=== PATIENT | female | born 1985 | race Native Hawaiian/Other Pacific Islander ===

== ENCOUNTER 2017-06-24 14:58 | Emergency (ER) | payer OTHER ==
[2017-06-24 15:53] VITALS: BMI 23.0
[2017-06-24] MEDS ORDERED: Betamethasone Soluspan 30 mg/5mL Inj Susp IM ONE (16:21)
[2017-06-24 22:17] VITALS: BP 109/76; PULSE 99; RESP 16; TEMP 97.8; O2SAT 96
== END 2017-06-24 17:43 | disposition home or self-care (01) ==
LOC: H.EROB2 14:58 → H.EROB 15:42 → H.EROB2 17:43
DX: O36.5931 Maternal care for other known or suspected poor fetal growth, third trimester, fetus 1 (principal); O26.93 Pregnancy related conditions, unspecified, third trimester; Z23 Encounter for immunization; Z3A.33 33 weeks gestation of pregnancy
CPT/HCPCS: 96372; 99281; J0702

== ENCOUNTER 2017-06-25 16:36 | Emergency (ER) | payer OTHER ==
[2017-06-25 16:37] VITALS: BMI 23.0
[2017-06-25] MEDS ORDERED: Betamethasone Soluspan 30 mg/5mL Inj Susp IM ONE ×2 (17:23→17:45)
--- NOTE | 2017-06-25 18:27 | OBHP ---
Datetime: 06/25/2017 17:56 IP Adm Impression: , intrauterine IP Admit Plan: Observation/Evaluation Admit Comment, IP Provider: 32 yo G1 at 33+1 wks w/ EDC 08/12/2016 by 10+ wk u/s who presents for se cond steroid dose of betamethasone for intrauterine growth restriction. Pt reports a recent cough, s aw appraisal specialist this week and was rx'd an inhalor. Pt's states that her cough is btter but not cured and that she will f/u w/ appraisal specialist. Pt has an appointment scheduled for MFM consult w/ Dr. Simms. Pt denies ctxns, VB, LOF and reports FM. Pt is a vegetarian. 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 Simms nest week for MFM consultation A/P: Abdomen - PN: Normal Lungs - PN: Abnormal Heart - PN: Normal Neurologic - PN: Normal General - PN: Normal FHR - Baseline A Provider: 130s Comments, ACOG Physical Exam: Lungs: pt started to cough w/ deep breaths and wheezing heard at the b ases EGA AdmitDate IP: 33.1 Vital Signs Provider: Reviewed IP Chief Complaint: Other NICHD Variability Prov Fetus A: Moderate 6-25bpm NICHD Accel Fetus A IP Provider: [id number] NICHD Decel Fetus A IP Provider: None
--- NOTE | 2017-06-25 18:29 | OBDCSUM ---
Datetime: 06/25/2017 17:53 Discharged to, Provider: Home Follow up at, Provider: Dr Sosa Disch Instr Activity: Normal activity Disch Instr Diet: Regular Discharge Instructions, Provider: Routine instructions given Discharge Time: 06/25/2017 18:10 Follow up in weeks, Provider: Next scheduled appointment Disch Referrals: None Contraception discussed, Prov: No Discharge Diagnosis Prov Other: Intrauterine growth restriction
[2017-06-28 13:49] VITALS: BP 124/78; PULSE 109
== END 2017-06-25 18:10 | disposition home or self-care (01) ==
LOC: H.EROB2 16:36
DX: O36.5930 Maternal care for other known or suspected poor fetal growth, third trimester, not applicable or unspecified (principal); Z3A.33 33 weeks gestation of pregnancy; O26.93 Pregnancy related conditions, unspecified, third trimester; R05 Cough; Z23 Encounter for immunization
CPT/HCPCS: 96372; 99281; J0702

== ENCOUNTER 2017-08-05 12:36 | Inpatient (IN) | payer OTHER ==
[2017-08-05 13:24] VITALS: BMI 23.8
[2017-08-05 15:31] LABS: BASO # 0.1 K/uL (0.0-0.2); BASO % 0.6 % (0.0-2.0); EOS # 0.1 K/uL (0.0-0.7); EOS % 0.9 % (0.0-4.0); HEMOGLOBIN 10.3 g/dL (12.0-16.0); LYMPH # 2.2 K/uL (1.0-4.3); LYMPH % 20.6 % (20.0-40.0); MEAN CORPUSCULAR HEMOGLOBIN 20.4 pg (27.0-31.0); MEAN CORPUSCULAR HGB CONC 30.9 g/dL (33.0-37.0); MEAN PLATELET VOLUME 9.6 fl (7.2-11.7); MONO # 0.6 K/uL (0.0-0.8); MONO % 5.5 % (0.0-10.0); NEUT # 7.9 K/uL (1.8-7.0); NEUT % 72.4 % (50.0-75.0); NRBC % 0.2 % (0.0-0.0); RBC 5.05 Mil/uL (3.80-5.20); RED CELL DISTRIBUTION WIDTH 15.1 % (11.5-14.5); WHITE BLOOD COUNT 10.9 K/uL (4.8-10.8)
--- NOTE | 2017-08-05 22:27 | OBADHP ---
Datetime: 08/05/2017 22:21 Admit Comment, IP Provider: 42-year-old at 39 weeks gestational age transferred to [facility] for induction of labor due to intrauterine growth restriction. Patient denies any current pro blems at this time. Patient denies any contractions, vaginal bleeding, leakage of fluids. Patient rep orts good movement. records reviewed. Past medical history malaria in 1999, iron deficiency anemia, asthma Past surgical history denies Medications vitamins, iron supplementation, albuterol when necessary Drug allergies Obstetrical history Social history no tobacco, drugs, no alcohol Assessment: 32-year-old at 39 weeks gestational age with IUGR for induction of labor. Maternal and well-being reassuring at this time. Plan: I discussed plan with patient and all patient questions answered. Cervidil placed vaginally as per her PMD request Pelvic Type - PN: Adequate Extremities - PN: Normal Abdomen - PN: Normal Back - PN: Normal Breast - PN: Normal Lungs - PN: Normal Heart - PN: Normal Thyroid - PN: Normal Neurologic - PN: Normal HEENT - PN: Normal General - PN: Normal FHR - Baseline A Provider: 120s-130s Membranes, Provider: Intact Contraction Comments Provider: occasional Vital Signs Provider: Reviewed; Within Normal Limits IP Chief Complaint: Other NICHD Variability Prov Fetus A: Moderate 6-25bpm NICHD Accel Fetus A IP Provider: [id number] FHR Category Provider Fetus A: Category I NICHD Decel Fetus A IP Provider: None Dilatation, Provider: 0 Effacement, Provider: 0 Station, Provider: -4 Genitourinary Exam: Normal DTRs - PN: Normal EGA AdmitDate IP: 37.4 IP Adm Impression: Term, intrauterine ; No Active Labor; Intact Membranes IP Admit Plan: Admit to unit; Initiate labor induction protocol Datetime: 06/25/2017 17:56 Comments, ACOG Physical Exam: Lungs: pt started to cough w/ deep breaths and wheezing heard at the b ases
[2017-08-06] MEDS ORDERED: Lactated Ringer's 1,000 ML IV SCH (07:30)
[2017-08-06] MEDS: Lactated Ringer's 1,000 ML IV SCH ×2 (07:30→07:55)
[2017-08-06] MEDS ORDERED: Fentanyl/Bupivacaine HCl 250 ML EPI ONE ×2 (08:20→08:56)
[2017-08-06] MEDS ORDERED: Oxytocin 30 UNITS in Sodium Chloride 0.9% 500 ML IV ONE (09:30)
--- NOTE | 2017-08-06 11:57 | OBDS ---
MATERNAL INFORMATION Estimated Blood Loss (ml): 250 Maternal Complications: Other Other Maternal Complications: IUGR/anemia Provider Comments: Delivered a living baby boy appears AGA, cried spontaneously, AF clear Placenta d elivered complete and intact multiple calcifications Episiotomy repaired as above Rectal done no defe cts No vaginal cervical or perineal tears noted Uterus contracted well No complications LABOR SUMMARY EDC: 08/22/2017 00:00 No. Babies in Womb: 1 LABOR INFORMATION Reason for Induction: Intrauterine Growth Retardation; Other Reason for Induction Other: anemia Cervical Ripening Agents: Cervidil Group B Beta Strep: Negative Steroids Given: None Reason Steroids Not Administered: Not Applicable VAGINAL DELIVERY Episiotomy: Median Laceration Extension: First Degree Laceration Type: Perineal; Vaginal Laceration Repair: Yes Laceration Repair Note: episiotomy repaired with 2-0 chromic interrupted for deep sutures and contin ous and lock for vagina. No complications Sponge Count Correct: Yes Sharps Count Correct: Yes Count Comment: count correct and verified by RN CSECTION DELIVERY Primary Indication: N/A Secondary Indication: N/A CSection Incision: N/A Uterine Closure: N/A
[2017-08-06] MEDS ORDERED: Benzocaine/Menthol SPRAY TOP PRN ×2 (11:58→18:06)
[2017-08-06] MEDS ORDERED: Oxycodone/Acetaminophen 5/325 mg Tab PO PRN ×2 (11:58→18:06)
[2017-08-07 08:25] LABS: HEMOGLOBIN 9.8 g/dL (12.0-16.0); MEAN CELL VOLUME 65.3 fl (81.0-99.0); MEAN CORPUSCULAR HEMOGLOBIN 20.8 pg (27.0-31.0); MEAN CORPUSCULAR HGB CONC 31.8 g/dL (33.0-37.0); RBC 4.72 Mil/uL (3.80-5.20); RED CELL DISTRIBUTION WIDTH 14.9 % (11.5-14.5)
[2017-08-07] MEDS ORDERED: Pneumococcal 23-Valent Vaccine IM ONE ×2 (09:00)
--- NOTE | 2017-08-08 11:34 | OBPPN ---
Datetime: 08/08/2017 11:23 PP Pain Prov: Within normal limits PP Pain Prov comment: no SOB, chest or leg pains PP Nausea Prov: Denies PP Flatus Prov: Yes PP BM Prov: Yes PP Breasts Prov: Normal PP Lungs Prov: Normal PP Abdomen/Uterus Prov: Abnormal PP Lochia Prov: Normal PP Vulva/Perineum Prov: Abnormal PP CVA Tenderness Prov: Normal PP Extremities Prov: Normal PP C/S Incision Prov: Not Applicable PP Progress Prov: Normal PP Comments Phys Exam Prov: Breast not engorged, NT; Uterus firm below the umb, NT adg not distedned Perineum repaired, Ext no calf tenderness PP Impression Prov: Normal progression PP Plan Prov: Discharge PP Progress Note Prov: Continue PNC vjit and iron at home Pelvic and bed rest IP PP Procedures: None Vital Signs Provider PP: Reviewed
--- NOTE | 2017-08-08 11:34 | OBDCSUM ---
Datetime: 08/08/2017 11:32 Discharged to, Provider: Home Follow up at, Provider: Dr Ian Byrd Instr Activity: Bedrest; May be up to bathroom; May be up for meals; May Shower Disch Instr Diet: Regular Discharge Instructions, Provider: Routine instructions given Discharge Diagnosis, Provider: Term Delivered Discharge Time: 08/08/2017 11:32 Follow up in weeks, Provider: 4-5 wks Disch Referrals: None Contraception discussed, Prov: Yes Disch Activity Restrictions: No exercising; No lifting; No driving; Minimize walking; Minimize stair -climbing; No sexual activity; Nothing in vagina - [place], tampons, douche Discharge Comment, Provider: Continue PNC vit and po iron Discharge Diagnosis Prov Other: IUGR by sonos; Anemia Contraception after Delivery: Undecided Datetime: 08/08/2017 10:24 Discharged to, Provider: Home Follow up at, Provider: Dr. Ian Byrd Instr Activity: Normal activity; May be up to bathroom; May be up for meals; May Shower Disch Instr Diet: Regular Discharge Time: 08/08/2017 11:30 Follow up in weeks, Provider: 4 to 6 weeks Disch Referrals: None Disch Activity Restrictions: No lifting; No sexual activity; Nothing in vagina - [place], tampon s, douche Datetime: 06/25/2017 17:53 Disch Instr Activity: Normal activity; May be up to bathroom; May be up for meals; May Shower Discharge Time: 08/08/2017 11:30 Disch Activity Restrictions: No lifting; No sexual activity; Nothing in vagina - [place], tampon s, douche
[2017-08-08 16:46] VITALS: BP 108/63; PULSE 76; RESP 18; TEMP 97.9; O2SAT 96
== END 2017-08-08 12:30 | disposition home or self-care (01) | DRG 775 ==
LOC: H.EROB2 12:36 → H.L&D 14:53 → H.OB/GYN 08-06 14:15
PROVIDERS: ADMIT Specialist; ATTEND Specialist
PROC: 4A1HXCZ Monitoring of Products of Conception, Cardiac Rate, External Approach (ICD-10-PCS; 2017-08-05)
PROC: 10E0XZZ Delivery of Products of Conception, External Approach (ICD-10-PCS; principal; 2017-08-06)
PROC: 0HQ9XZZ Repair Perineum Skin, External Approach (ICD-10-PCS; 2017-08-06)
DX: O36.5930 Maternal care for other known or suspected poor fetal growth, third trimester, not applicable or unspecified (principal); O70.0 First degree perineal laceration during delivery; Z37.0 Single live birth; O99.02 Anemia complicating childbirth; Z3A.39 39 weeks gestation of pregnancy